=== PATIENT | male | born 1950 | race Caucasian/White ===

== ENCOUNTER → 2016-09-16 | Outpatient (CLI) | payer OTHER ==
--- NOTE | 2016-09-16 10:08 | US ---
Right Upper Quadrant Sonogram September 16, 2016 Indication: Follow up probably benign cyst versus atypical hemangioma in right lobe of liver. Findings: The uniformly hypoechoic round lesion in the posterior segment right lobe of the liver, leticia suring 1.5 x 1.5 x 1.5 cm, is unchanged in size since March 2015 and May 2015. A benign 1.9 cm c yst resides in the lateral segment left lobe of the liver (unchanged). The upper normal size liver, m easuring 18.4 cm in the midaxillary line, has normal echogenicity and echotexture. No biliary dilatio n. The gallbladder is normal. No intraluminal stones, sludge, wall thickening, or sonographic Desai sig n. Common bile duct is normal caliber (4 mm). Portal vein is patent. The abdominal aorta is tortuous with a maximal AP dimension of 2.3 cm. The right kidney is unremarkable. No hydronephrosis. The right kidney measures 10.8 cm in length x 5. 2 x 5.1 cm axially. A small benign 1.4 x 1.2 x 1.0 cm cyst resides in the right mid kidney. No free fluid. The imaged portions of the pancreatic neck, head, and central body are normal. The pa ncreatic tail is obscured by bowel gas. Impression: 1. Probably benign proteinaceous cyst versus atypical hemangioma in the right lobe of liver is unchan ged since May 2015. Recommend continued surveillance with a follow-up ultrasound in 12 months. 2. Normal gallbladder. No cholelithiasis, biliary dilation, or free fluid.
--- NOTE | 2016-09-16 11:09 | CT ---
CT Chest, Without Contrast September 16, 2016 Indication: Probably benign noncalcified pulmonary nodules. Surveillance. Technique: The chest was scanned with 2.5 mm thick helically acquired slices without IV contrast. Dos e reduction techniques were utilized. Comparison: Thyroid ultrasound dated April 30, 2015, CT of the abdomen dated April 02, 2015, and Sept emb2014. Findings: The several smooth, ovoid, and round noncalcified pulmonary nodules scattered throughout th e lower lung zones are unchanged in size since March 2015. The largest in the lateral segment left low er lobe on image 254 of series 3 measures 7 x 4 mm. No suspicious spiculated or ground-glass nodule has developed. The lungs are well aerated and clear. No emphysema or pulmonary fibrosis. Minimal mikayla gn bilateral apical pleuroparenchymal scarring is present. Central airway is clear. No endobronchial lesion or mucous plugging. The heart size is normal with minimal calcified plaque along the left anterior descending coronary ar sandrine. The ascending aorta is upper normal caliber measuring 3.5 cm AP. Minimal calcified atheroma is present along the aortic arch. No pericardial or pleural effusion. No enlarged lymph node or mass. Th e benign cisterna chyli in the right retrocrural space is unchanged since March 2015. A well-circumscr ibed low-attenuation nodule in left lobe of the thyroid gland is unchanged since April 2015. No bone lesions. Mild multilevel degenerative disk disease. Impression: 1. Benign bibasilar pulmonary nodules unchanged since March 2015. 2. No new suspicious nodule or lymphadenopathy has developed. 3. Minimal calcified coronary plaque. 4. Stable left thyroid nodule.
== END ==
LOC: CIMAGING 09:07
PROVIDERS: ATTEND Internal Medicine
DX: R91.1 Solitary pulmonary nodule (principal); E04.1 Nontoxic single thyroid nodule; K76.9 Liver disease, unspecified
CPT/HCPCS: 71250-PO; 76705-PO

== ENCOUNTER → 2017-06-17 | Outpatient (CLI) | payer OTHER | LOC: BMCIMAGING 16:48 | PROVIDERS: ATTEND Internal Medicine | DX: J98.6 Disorders of diaphragm (principal); R05 Cough ==

== ENCOUNTER → 2017-06-19 | Outpatient (CLI) | payer OTHER | LOC: FCPNEURO 20:00 | PROVIDERS: ATTEND Internal Medicine Sleep Medicine | DX: G47.33 Obstructive sleep apnea (adult) (pediatric) (principal) ==

== ENCOUNTER → 2018-11-21 | Outpatient (CLI) | payer OTHER | LOC: FIMAGING 09:50 | PROVIDERS: ATTEND Family Medicine | DX: E04.2 Nontoxic multinodular goiter (principal) ==